=== PATIENT | male | born 1950 | race Caucasian/White ===

== ENCOUNTER 2020-06-30 09:16 | Day surgery (SDC) | payer OTHER ==
[~2020-06-30] VITALS: Ht 175.3 cm; Wt 65.2 kg
[~2020-06-30 09:16] MED LIST: AMOX500 PO; ASCO1ER PO; ASCO500 PO; ATOR20 PO; Aspir 8181 MG PO; CHOL10002; CLOP75 PO; FOLI1 PO; IBUP100S PO; ISOMON30 PO; LISI5 PO; METO25 PO; OMEP20ER PO; OXYACE5T PO; PANT40 PO
[2020-06-30] MEDS ORDERED: LOSA25 PO (09:56)
[2020-07-09] MEDS ORDERED: Aspirin EC81 MG PO (11:58)
[2020-07-09] MEDS ORDERED: ATOR10 PO (11:58)
[2020-07-09] MEDS ORDERED: FOLI1 PO (11:59)
[2020-07-09] MEDS ORDERED: EPIPEN JR0.15 MG/0. (11:59)
[2020-07-09] MEDS ORDERED: Lopressor 25 mg25 MG PO (12:00)
[2020-07-09] MEDS ORDERED: LOSA25 PO (12:00)
[2020-07-09] MEDS ORDERED: NICODERM CQ TD (12:01)
[2020-07-09] MEDS ORDERED: PANT20 PO (12:01)
[2020-07-09] MEDS ORDERED: NITR.6SL SL (12:01)
== END 2020-06-30 11:39 | disposition home or self-care (01) ==
LOC: ORSCSDS 09:16
PROVIDERS: Ophthalmology
PROC: 08RJ3JZ Replacement of Right Lens with Synthetic Substitute, Percutaneous Approach (ICD-10-PCS; principal; 2020-06-30 10:30)
DX: H25.11 Age-related nuclear cataract, right eye (principal); H52.201 Unspecified astigmatism, right eye; I10 Essential (primary) hypertension; I25.2 Old myocardial infarction; J44.9 Chronic obstructive pulmonary disease, unspecified; F17.210 Nicotine dependence, cigarettes, uncomplicated; K21.9 Gastro-esophageal reflux disease without esophagitis; Z79.82 Long term (current) use of aspirin; Z79.899 Other long term (current) drug therapy
CPT/HCPCS: A9270; J2001; J2250; J3010; J3301; J7040; V2632

== ENCOUNTER 2020-07-16 10:13 | Day surgery (SDC) | payer OTHER ==
[~2020-07-16] VITALS: Ht 175.3 cm; Wt 64.4 kg
[~2020-07-16 10:13] MED LIST changes: +ATOR10 PO; +Aspirin EC81 MG PO; +EPIPEN JR0.15 MG/0.; +LOSA25 PO; +Lopressor 25 mg25 MG PO; +NICODERM CQ TD; +NITR.6SL SL; +PANT20 PO
--- NOTE | 2020-07-16 10:53 | NUR ---
07/16/20 1053 Vanessa Najera (Laly DROP IN AT 1045; PLEDGET IN AT 1052.
== END 2020-07-16 12:45 | disposition home or self-care (01) ==
LOC: ORSCSDS 10:13
PROVIDERS: Ophthalmology
PROC: 08RK3JZ Replacement of Left Lens with Synthetic Substitute, Percutaneous Approach (ICD-10-PCS; principal; 2020-07-16 12:00)
DX: H25.12 Age-related nuclear cataract, left eye (principal); H52.202 Unspecified astigmatism, left eye; I10 Essential (primary) hypertension; I25.2 Old myocardial infarction; E78.5 Hyperlipidemia, unspecified; J44.9 Chronic obstructive pulmonary disease, unspecified; F17.210 Nicotine dependence, cigarettes, uncomplicated; K21.9 Gastro-esophageal reflux disease without esophagitis; Z79.01 Long term (current) use of anticoagulants; Z79.82 Long term (current) use of aspirin; Z79.899 Other long term (current) drug therapy
CPT/HCPCS: A9270; J2001; J2250; J3010; J3301; J7040; V2632